=== PATIENT | male | born 1955 | race Caucasian/White ===

== ENCOUNTER 2024-08-28 23:55 | Inpatient (IN) | payer MEDICARE, SELFPAY ==
[2024-08-28 20:11] VITALS: BP 147/93
[2024-08-28 20:33] LABS: % Basophils 0.5 % (0-2); % Eosinophils 0.6 % (0-6); % Immature Granulocytes 0.4 % (0-0.5); % Monocytes 6.9 % (1.7-9.3); % Neutrophils 79.6 % (42.2-75.2); Absolute Basophils 0.1 10^3/uL (0-0.2); Absolute Eosinophils 0.1 10^3/uL (0-0.7); Absolute Lymphocytes 1.3 10^3/uL (1.2-3.4); Absolute Monocytes 0.7 10^3/uL (0.1-0.6); Absolute Neutrophils 8.6 10^3/uL (1.4-6.5); Hematocrit 29.9 % (39.0-52.0); Hemoglobin 10.7 g/dL (13.0-18.0); Mean Corp Hgb Conc. 35.8 g/dL (33.0-37.0); Mean Corpuscular Hgb 33.3 pg (27.0-31.0); Mean Corpuscular Volume 93.1 fL (80.0-94.0); Mean Platelet Volume 8.5 fL (7.4-10.4); Nucleated Red Blood Cells % 0 % (-); Platelet Count 208 10^3/uL (130-400); Red Blood Cell Count 3.21 10^6/uL (4.70-6.10); Red Cell Dist. Width 11.5 % (11.5-14.5); White Blood Cell Count 10.8 10^3/uL (4.8-10.8)
[2024-08-28 20:57] LABS: ALT (SGPT) 17 U/L (0-50); AST (SGOT) 28 U/L (17-59); Albumin 4.7 g/dl (3.5-5.0); Alkaline Phosphatase 65 U/L (38-126); Blood Urea Nitrogen 10 mg/dl (9-20); Calcium 9.3 mg/dl (8.4-10.2); Carbon Dioxide 22 mmol/L (22-30); Chloride 86 mmol/L (98-107); Creatine Phosphokinase 253 U/L (55-170); Glucose 108 mg/dl (70-99); Potassium 5.1 mmol/L (3.5-5.1); Sodium 116 mmol/L (135-145); Total Bilirubin 0.9 mg/dl (0.2-1.3); Total Protein 7.4 g/dl (6.3-8.2); eGFR > 60.00
[2024-08-28 22:20] VITALS: BMI 29.6
--- NOTE | 2024-08-28 22:30 | EDRN ---
Pt visiting from [place]. at bedside says pt's sodium level normally runs around 129. Lowest NA level was 118. Pt complains of cramping. says pt's doctor took him off spironolactone, clonidine and losartan on because of low
sodium levels. says they drove 3 hours yesterday and another 3 hours today. She says pt is an alcoholic and continues to drink. On says doctor lectured pt about stopping his alcohol intake. Pt has cut down to 6 beers daily.
Last alcohol was half a beer around 1700. Pt has had about 3 total beers today. Pt vomited once today because of cramping. Pt denies cp, sob, abd pain, fever/chills, urinary symptoms, weakness, dizziness.
[2024-08-28 22:39] VITALS: BP 129/94
--- NOTE | 2024-08-28 22:41 | ED.GENMED ---
History of Present Illness
General
Chief Complaint: Musculo-Skeletal Complaint
Source: patient and spouse ( is present at the bedside)
Exam Limitations: none
Time Seen by Provider: 08/28/24 22:29
Nursing documentation reviewed up to this point in time: agreed with
History of Present Illness
History of Present Illness:
Pleasant 69-year-old male presents to the emergency department with leg cramping. Patient has a history of chronic hyponatremia and states that leg cramping is an early sign. He is on sodium supplementation, taking 5 pills a day. He admits to
being a chronic alcoholic. He typically drinks 8-10 beers per day but according to his , his PCP convinced him to cut back so now he is drinking only 6 beers per day. Today he was on his third beer when he developed the cramping. Patient is
from [place], in town temporarily. He has never been here before. Patient denies chest pain or shortness of breath. He has had multiple back surgeries in his past. Patient's past medical history is also significant for hypertension and
hyperlipidemia.
Review of Systems
Review of Systems
Allergies reviewed?: Yes
All Other Systems: ROS reviewed and negative except as documented in HPI and ROS
Constitutional: Reports no symptoms
EENT: Reports no symptoms
Respiratory: Reports no symptoms
Cardiac: Reports no symptoms
ABD/GI: Reports no symptoms
: Reports no symptoms
Musculoskeletal: Reports muscle pain (Cramping)
Skin: Reports no symptoms
Neurological: Reports no symptoms
Endocrine: Reports no symptoms
Hematologic/Lymphatic: Reports no symptoms
Psychiatric: Reports no symptoms
Phy Exam
General Physical Exam
General Presentation: well appearing and no apparent distress
General Skin: warm and dry
General Habitus: normal
General Mental: alert
General Hydration: appears well hydrated
ENT Exam
ENT Exam: EOMI, pharynx normal, neck supple and normocephalic
Eye Exam
Eye Exam: PERRL, cornea clear and conjunctiva normal
Cardiovascular Exam
Cardiovascular Exam: regular rate/rhythm, no edema, no murmur and normal peripheral pulses
Pulmonary Exam
Pulmonary Exam: lungs clear, no respiratory distress, no rales, no crackles, no rhonchi, no stridor, no wheezing and no cough
Gastrointestinal Exam
Gastrointestinal Exam: normal bowel sounds, non tender, soft, no organomegaly, no pulsatile mass and non distended
Neurological Exam
Neurological Exam: alert, oriented x3, no motor deficits and speech normal
Musculoskeletal Exam
Musculoskeletal Exam: full ROM, no edema and other (Well-healed scars down the midline of his back for much of the entirety of the back)
Skin Exam
Skin Exam: normal color, warm/dry, no rash and no petechia
Psychiatric Exam
Psychiatric Exam: normal mood/affect
Course
Orders/Labs/Results
Orders:
Orders
08/28/24 20:22
CPK [Creatine Phosphokinase] Urgent
Complete Blood Count/With Diff Urgent
Comprehensive Metabolic Panel Urgent
08/28/24 22:34
Add On- LAB Urgent
Tests Added?: alcohol
08/28/24 22:35
3% Sodium Chloride 250 ml [Sodium Chloride 3%] 250 ml IV ONCE
08/28/24 22:40
Add On- LAB Urgent
Tests Added?: magnesium level
Abnormal Lab Results
08/28/24
20:22
RBC 3.21 L 10^6/uL
(4.70-6.10)
Hgb 10.7 L g/dL
(13.0-18.0)
Hct 29.9 L %
(39.0-52.0)
MCH 33.3 H pg
(27.0-31.0)
Absolute Neuts (auto) 8.6 H 10^3/uL
(1.4-6.5)
Absolute Monos (auto) 0.7 H 10^3/uL
(0.1-0.6)
Neutrophils % 79.6 H %
(42.2-75.2)
Lymphocytes % 12.0 L %
(20.5-51.1)
Sodium 116 L* mmol/L
(135-145)
Chloride 86 L mmol/L
(98-107)
Glucose 108 H mg/dl
(70-99)
Creatine Kinase 253 H U/L
(55-170)
08/28/24 20:22
08/28/24 20:22
Vital Signs
Initial and Last Documented VS:
Initial Vital Signs
Temp Pulse Resp BP Pulse Ox
98.0 F 81 16 147/93 99
08/28/24 20:11 08/28/24 20:11 08/28/24 20:11 08/28/24 20:11 08/28/24 20:11
Last Documented Vital Signs
Temp Pulse Resp BP Pulse Ox
98.0 F 81 16 147/93 99
08/28/24 20:11 08/28/24 20:11 08/28/24 20:11 08/28/24 20:11 08/28/24 20:11
*Critical Care Note
Total Time (30-74mins, 75-104mins- exclusive of procedures): 32 (Critical care statement: A total of 32 minutes of critical care time was provided for this patient. This time is separate from time utilized to perform the aforementioned documented
procedures. Aggregate critical care time includes only time during which I was engaged in work directl)
ED Attending Note
-
Portions of this chart may have been created with voice recognition software.� Occasional wrong word or��sound alike� substitutions may have occurred due to the inherent limitations of voice recognition software.
Discharge Plan
Departure
Patient Disposition: Admit
Date of Disposition: 08/28/24
Time of Disposition: 22:44
Admit to: ICU
Presentation/result/management discussed w/ accepting MD/DO: Hospitalist
Discharge Problem:
Acute hyponatremia, Cramp in muscle, Alcoholism
Prescriptions:
No Action
carvedilol 25 mg Tablet
25 mg PO BID
potassium chloride 10 mEq Tablet Extended Release
10 meq PO BID
thiamine HCl (vitamin B1) 250 mg Tablet
250 mg PO DAILY
omeprazole 40 mg Capsule,Delayed Release(Dr/Ec)
40 mg PO DAILY
simvastatin 20 mg Tablet
20 mg PO DAILY
folic acid 800 mcg Tablet
0.8 mg PO DAILY
sodium chloride 1,000 mg Tablet,Soluble
2,000 mg PO BID
sodium chloride 1,000 mg Tablet,Soluble
1,000 mg PO DAILY@1400
cyanocobalamin (vitamin B-12) 1,000 mcg Capsule
1,000 mcg PO DAILY
magnesium oxide 400 mg magnesium Tablet
400 mg PO Q12H
Probiotic
1 cap PO DAILY
citalopram
25 mg PO DAILY
Interventions
Interventions:
*Risk Screen - Suicide Last Done: 08/28/24 20:11
*General Assessment Last Done: 08/28/24 20:11
*Neglect/Abuse Screening Last Done: 08/28/24 20:11
*ED- Fall Risk Assessment Last Done: 08/28/24 20:11
*ED COVID-19 Vaccine History Last Done: 08/28/24 20:11
Discharge Date and Time
Print Language: TAJIK
--- NOTE | 2024-08-28 22:49 | HPS.HSE ---
Addendum entered and electronically signed by Vikas Schumacher DO 08/29/24 00:02:
Patient seen and examined independently. Agree with findings and plan as set forth by ISATU Rob.
Patient is a 69y M with PMH significant for chronic alcohol use disorder and chronic hyponatremia / beer potomania who presents to ED complaining of R thigh cramping. Patient states that he has been having cramping / muscle spasms in the R thigh
/ groin / hip area for the past week or so. he denies any fall, injury or trauma. He denies any other areas of involvement / diffuse muscle cramping. Patient has chronic hyponatremia and is followed by Nephrology back home in [place]. He is here in
[place] visiting family. Patient typically drinks 12 beers / day. Had three beers so far today prior to presentation. Patient states that baseline Na is usually 129. This past his Na was 121 and he was advised to decrease his beer intake
from 12 to 6 beers daily.
Ass:
Right Hip Pain
Acute on Chronic Hyponatremia
Alcohol Use Disorder
Hypomagnesemia
Benign Hypertension
Depression
GERD
Plan:
Admit for further evaluation and treatment.
3% saline has been started in the ED.
Suspect hyponatremia will improve with fluid restriction given known beer potomania.
Nephrology consulted.
Urine studies added to ED labs and are pending.
Localized cramping does not seem consistent with hyponatremia - check x-rays for evidence of underlying DJD, etc to explain his presenting complaints.
Would also check US to r/o DVT as patient recently drove here from [place] (7 hours) and just drove to [place] and back earlier this month.
MSAS protocol with PRN BZDs for symptoms of withdrawal.
Electrolyte / vitamin replacements.
Original Note:
Family Physician
-
Family Physician:
Chief Complaint
-
leg cramp
History of Present Illness
Patient is a 69-year-old male with past medical history significant for hyponatremia, hypertension, hyperlipidemia, depression/anxiety and GERD who presented to [facility] ED for evaluation of leg cramping. Patient is history of hyponatremia with lowest
118 and highest 129, his baseline is upper 120s. He currently taking sodium chloride TID. Patient also report alcohol dependency currently drinking 6 beers per day, down from 12 per day recently decreased this past . He does report history
of withdraw hallucinations 10-12 years ago when he went to detox and at that time he was drinking 24 beers per day. Patient denies any fever, chills, cough, shortness of breath, chest pain, palpitations, vomiting, constipation, diarrhea or urinary
symptoms.
Medical History
Past Medical History
Past Medical History: Reports Other
Additional Past Medical History:
hyponatremia
alcohol dependency
hypertension
hyperlipidemia
depression/anxiety
GERD
Past Surgical History: Reports Other
Additional Past Surgical History:
back surgery x8
Social History
Tobacco: Other (chews daily )
Alcohol: Daily (currently 6 beers a day, decreased from 12 beers 3 days ago)
Drug: None
Personal:
Living: With Family
Employment: Retired
Family History
Family History: Other (Father: [place])
Allergies / Home Medications
Allergies reflects when Allergies were last updated in [facility].
Home Medications with original date entered in [facility]
Allergy/Medication List:
Allergies
Allergy/AdvReac Type Severity Reaction Status Date / Time
No Known Allergies Allergy Unverified 08/28/24 20:16
Home Medications
Probiotic 1 cap PO DAILY 08/28/24
carvedilol 25 mg tablet 25 mg PO BID 08/28/24
citalopram 25 mg PO DAILY 08/28/24
cyanocobalamin (vitamin B-12) 1,000 mcg capsule 1,000 mcg PO DAILY 08/28/24
folic acid 800 mcg tablet 0.8 mg PO DAILY 08/28/24
magnesium oxide 400 mg PO Q12H 08/28/24
omeprazole 40 mg capsule,delayed release 40 mg PO DAILY 08/28/24
potassium chloride 10 mEq tablet,extended release 10 meq PO BID 08/28/24
simvastatin 20 mg tablet 20 mg PO DAILY 08/28/24
sodium chloride 1,000 mg soluble tablet 1,000 mg PO DAILY@1400 08/28/24
sodium chloride 1,000 mg soluble tablet 2,000 mg PO BID 08/28/24
thiamine HCl (vitamin B1) 250 mg tablet 250 mg PO DAILY 08/28/24
Review of Systems
-
History Source: Patient
Musculoskeletal: Reports Muscle Pain (cramping in LLE )
Physical Exam
Vital Signs
Vital Signs
Temp Pulse Resp BP Pulse Ox
98.0 F 81 16 147/93 99
08/28/24 20:11 08/28/24 20:11 08/28/24 20:11 08/28/24 20:11 08/28/24 20:11
Physical Exam
General: Well Developed, Well Nourished, No Apparent Distress, Comfortable and Conversant
HEENT: NormoCephalic, Moist mucous membranes, Atraumatic, [place] Conjunctivae and Ears Appear Normal
Respiratory: Clear
Cardiac: S1/S2 and Regular Rhythm
Breast: Deferred by me
GI: Soft, Non Tender, Non Distended and Normal Bowel Sounds
Rectal: Deferred by Provider
Genito-urinary: Deferred by me
Musculoskeletal: No Clubbing, No Cyanosis and No Edema
Skin: Warm and IV/Catheter Site
Neuro: Awake, Alert, AO x 3 and Nonfocal/grossly intact
Psych: Calm and Intact Judgment/Insight
Laboratory Results
-
08/28/24 20:22
08/28/24 20:22
Laboratory Results
Total Bilirubin 0.9 mg/dl (0.2-1.3) 08/28/24 20:22
AST 28 U/L (17-59) 08/28/24 20:22
ALT 17 U/L (0-50) 08/28/24 20:22
Alkaline Phosphatase 65 U/L (38-126) 08/28/24 20:22
Data Reviewed
-
Lab Data: Labs Reviewed by me (hgb 10.7, hct 29.9, Na+ 116)
Impression/Plan
-
IMPRESSION/PLAN:
#hyponatremia
Na + 116
- Admit to telemetry
- Consult nephrology
- request records from [facility] [employer] [employer] @ [place], [place], [place]
- 3% sodium
- Na+ q4
#alcohol dependency
6 beers daily, recently decreased from 12 beers daily 3 days ago
- MSAS protocol
#hypomagnesium
Mag 1.5
- replete as indicated
- monitor mag level
#hypertension
- continue carvedilol
#hyperlipidemia
- continue simvastatin
#depression/anxiety
- continue citalopram
#GERD
- continue omeprazole
Code status: full code
DVT prophylaxis: lovenox sq
--- NOTE | 2024-08-28 22:53 | EDRN ---
Called pharmacy for 3% NaCl
[2024-08-28 23:00] VITALS: BP 151/78
[2024-08-28] MEDS: SODIUM CHLORIDE 3% 250 IV (23:05)
[2024-08-28 23:18] LABS: Alcohol 46 mg/dl; Magnesium 1.5 mg/dl (1.6-2.3)
--- NOTE | 2024-08-28 23:42 | EDRN ---
Called pharmacy for magnesium
[2024-08-29] VITALS (29 sets, daily range): BP systolic 78–181; BP diastolic 62–168; BMI 29.5
[2024-08-29] MEDS: MAGNESIUM SULFATE 50 IV (00:56)
[2024-08-29 02:55] LABS: Urine Albumin Negative (Neg - Trace); Urine Bilirubin Negative (Negative); Urine Character Clear (Clear); Urine Color Yellow; Urine Glucose Negative (Negative); Urine Ketone 1+ (Negative); Urine Leukocyte Negative (Negative); Urine Nitrite Negative (Negative); Urine Occult Blood Negative (Negative); Urine Urobilinogen Negative (Neg - 1+)
[2024-08-29 02:56] LABS: Osmolality Urine 481 mOsm/kg (300-900)
[2024-08-29 03:07] LABS: Amphetamines Negative (Negative); Barbiturates Negative (Negative); Benzodiazepines Negative (Negative); Buprenorphine Negative (Negative); Cocaine Negative (Negative); Marijuana Negative (Negative); Methadone Negative (Negative); Methamphetamines Negative (Negative); Opiates Negative (Negative); Phencyclidine Negative (Negative); Tricyclic Antidepressants Negative (Negative)
[2024-08-29 03:12] LABS: Urine Sodium 74 mmol/L (30-90)
[2024-08-29] MEDS: ATIVAN 1 MG IV ×3 (03:14→09:09)
[2024-08-29] MEDS: NSS (PRESERVATIVE FREE) 0.5 ML IV ×2 (03:15→04:41)
[2024-08-29 03:30] LABS: Sodium 117 mmol/L (135-145)
[2024-08-29 03:33] LABS: Phosphorus 3.9 mg/dl (2.5-4.5)
[2024-08-29 03:39] LABS: B-Hydroxybutyrate 1.17 mmol/L (0.02-0.27)
[2024-08-29 04:23] LABS: GGTP 23 U/L (15-73)
[2024-08-29] MEDS: ATIVAN 2 MG IV ×2 (05:40→06:36)
[2024-08-29 05:54] LABS: Glucose - Point of Care 124 mg/dl (70-99)
[2024-08-29] MEDS: NSS (PRESERVATIVE FREE) 1 ML IV (06:00)
--- NOTE | 2024-08-29 06:15 | W.PN.UPDATE ---
Update Note
Progress Note Update
Patient's MSAS has been steadily climbing throughout the overnight and rapid was called. Patient meets criteria for Precedex with MSAS >11. Will transfer.
[2024-08-29 06:28] LABS: Hematocrit 26.4 % (39.0-52.0); Hemoglobin 9.8 g/dL (13.0-18.0); Mean Corp Hgb Conc. 37.1 g/dL (33.0-37.0); Mean Corpuscular Hgb 33.6 pg (27.0-31.0); Mean Corpuscular Volume 90.4 fL (80.0-94.0); Mean Platelet Volume 8.8 fL (7.4-10.4); Platelet Count 198 10^3/uL (130-400); Red Blood Cell Count 2.92 10^6/uL (4.70-6.10); Red Cell Dist. Width 10.9 % (11.5-14.5); White Blood Cell Count 7.8 10^3/uL (4.8-10.8)
[2024-08-29] MEDS: PRECEDEX 100 IV (06:35)
[2024-08-29] MEDS: PHENOBARBITAL 104 MG IV (06:41)
--- NOTE | 2024-08-29 06:43 | W.PN.UPDATE ---
Update Note
Progress Note Update
1620- Received patient from the floor as rapid response due to extreme agitation from withdrawal of ETOH. Ativan 2mg IV given and Precedex gtt initiated. Patient in 4 point restraints due to agitation and aggressive behavior.
[2024-08-29 06:46] LABS: Blood Urea Nitrogen 9 mg/dl (9-20); Carbon Dioxide 22 mmol/L (22-30); Chloride 91 mmol/L (98-107); Estimated Creatinine Clearance 89 ml/min; Glucose 108 mg/dl (70-99); Magnesium 1.9 mg/dl (1.6-2.3); Potassium 4.7 mmol/L (3.5-5.1); Sodium 121 mmol/L (135-145); eGFR > 60.00
--- NOTE | 2024-08-29 06:55 | PTCARENOTE ---
Responded to rapid response that was called on pt on 3rd floor. Pt with increasing MSAS. Transferred to ICU in 4 limb soft restraints. 3% Na infusing per order via L FA int. Complete CHG bath provided, #25 condom cath placed. Precedex gtt initiated
per order via R AC int. Phenobarbital bolus ordered and infusing currently. AM labs sent by IVT RN while on 3rd floor. Pt is diaphoretic, restless, nonverbal x moaning/grunting, no commands followed at this time. ST on tele. Lung sounds decreased
throughout, pox 94% on room air. Dr Parrish at bedside and brief update provided. Will hold on additional ordered dose of Ativan to assess phenobarb effect. Report to be given to oncoming shift RN.
--- NOTE | 2024-08-29 07:30 | PTCARENOTE ---
Received patient A&Ox0, moaning and unable to follow commands, continue soft restraints, on RA, ST in 120s, on Precedex drip.
--- NOTE | 2024-08-29 07:51 | PTCARENOTE ---
Pt arrived to floor approximately 2am. 3% saline for na of 116 (baseline 129), and mag for 1.5 started in ED . Pleasant but drowsy. VSS, tele placed, NSR. Pt completed admission questions, c/o mild cramping in legs. MSAS upon arrival 1. Pt fell
asleep with some restlessness and jerky movements, but able to wake and calm, repeat na 117and hour later pt more restless, pulled IV, removed tele, MSAS 8 which steadily increased over the next 4 hours despite pharmaceutical management, TAGMAN
aware. Placed in restraint for safety, MSAS > 12 rapid called, pt transferred to ICU.
--- NOTE | 2024-08-29 08:39 | CON.INTV ---
Consultation
Consultation Request
Date/Time Consultation Requested: 08/29/2024
Date/Time Consultation Performed:
Medical History
-
Chief Complaint: R Leg Cramps
History of Present Illness:
69 year old male pmhx of chronic alcohol use disorder with chronic hyponatremia (on TID sodium chloride), hypertension, hyperlipidemia, hyperlipidemia, GERD, depression/anxiety who presents with cramping and muscle spasms in the right
thigh/groin/hip for roughly 1 week. He is currently drinking 6 beers per day, which is down from 12 beers per day prior. He has a history of DTs 10-12 years ago during detox, during which time he was drinking 24 beers/day. Initial workup included
ECG which showed NSR, a hip xray which showed no acute osseous abnormalities, and a lower extremity venous Doppler US for h/o long driving. Initial chemistries revealed sodium of 116, Mg 1.5. He was started on 3% saline, MSAS protocol, and his
magnesium was repleted. Serum EtOH was wnl. Throughout the night the patient became increasingly agitated, requiring multiple doses of 1mg/2mg IV Ativan. Eventually, an [employer] was called and the patient was requiring further sedation with Precedex and
was upgraded to ICU.
He is currently on 4 point restraints, Precedex 0.3 ggt, phenobarbital taper, thiamine/folate supplementation. A straight cath was done, yielding approx. 450cc of rizwan-yellow colored urine. Patient is saturating 96% on RA. He is intermittently
tachycardic with nursing activity, but returns to normal rate. He is arousable to sternal rub but not able to meaningfully respond.
Past Medical History
Past Medical History: GERD, HTN, Hypercholesterolemia, Psychiatric and Other (Alcohol Use Disorder)
Past Surgical History: None
Social History
Alcohol: Chronic Alcoholic
Drug: None
Family History
Family History: Reviewed & Not Pertinent
Allergies / Home Medications
Allergies
Allergy/AdvReac Type Severity Reaction Status Date / Time
No Known Allergies Allergy Unverified 08/28/24 20:16
Home Medications
�Medication �Instructions �Recorded �Confirmed �Last Taken �Type
Probiotic 1 cap PO DAILY 08/28/24 08/28/24 Unknown History
carvedilol 25 mg tablet 25 mg PO BID 08/28/24 08/28/24 Unknown History
citalopram 25 mg PO DAILY 08/28/24 08/28/24 Unknown History
cyanocobalamin (vitamin B-12) 1,000 mcg PO DAILY 08/28/24 08/28/24 Unknown History
1,000 mcg capsule
folic acid 800 mcg tablet 0.8 mg PO DAILY 08/28/24 08/28/24 Unknown History
magnesium oxide 400 mg PO Q12H 08/28/24 08/28/24 Unknown History
omeprazole 40 mg capsule,delayed 40 mg PO DAILY 08/28/24 08/28/24 Unknown History
release
potassium chloride 10 mEq 10 meq PO BID 08/28/24 08/28/24 Unknown History
tablet,extended release
simvastatin 20 mg tablet 20 mg PO DAILY 08/28/24 08/28/24 Unknown History
sodium chloride 1,000 mg soluble 1,000 mg PO DAILY@1400 08/28/24 08/28/24 Unknown History
tablet
sodium chloride 1,000 mg soluble 2,000 mg PO BID 08/28/24 08/28/24 Unknown History
tablet
thiamine HCl (vitamin B1) 250 mg 250 mg PO DAILY 08/28/24 08/28/24 Unknown History
tablet
Review of Systems
-
Unable to Obtain full review of systems at this time due to: Other (Patient sedation)
Vitals / Labs / Diagnostic Testing
Vital Signs
Temp Pulse Resp BP Pulse Ox
99 F 96 16 143/80 98
08/29/24 07:39 08/29/24 04:36 08/29/24 04:36 08/29/24 04:36 08/29/24 04:36
Lab Data
08/29/24 06:04
Diagnostic Testing:
Physical Exam
-
HEENT: Normocephalic, Anicteric, Moist Mucous Membranes and Other (snoring)
Cardiovascular: S1/S2, Regular Rhythm, Murmur (none) and Peripheral Edema (none)
Respiratory: Clear, Wheeze (none), Rales (none), Rhonchi (none) and Accessory Resp Muscle Use
GI: Soft, Non Distended, Non Tender and Normal Bowel Sounds
Neurology: Other (sedated)
Skin: Warm and Dry
Assessment
-
ASSESSMENT
Toxic metabolic encephalopathy secondary to alcohol withdrawal/hyponatremia
Delirium tremens
Chronic alcohol use disorder
Chronic hyponatremia
Hypomagnesemia
Acute urinary retention
Normocytic anemia
Hypertension
Hyperlipidemia
GERD
Anxiety/depression
History of restless leg syndrome
PLAN
Toxic metabolic encephalopathy
Delirium tremens
Chronic alcohol use disorder
- Precedex drip for sedation, wean as able
- d/c Ativan, c/w MSAS protocol, IV thiamine/folate
- Strict n.p.o. -- hold p.o. Coreg, citalopram resolved potassium chloride, sodium chloride
- Continue with phenobarbital taper, no signs of active seizure activity
- Will prefer treatment of agitation with phenobarbital over Ativan for decreased risk of respiratory complications in this patient with signs of glossal obstruction during inspiration
Acute on chronic hyponatremia
- Hyponatremia correction per nephro, goal of 124 by the evening and 128 by tomorrow morning
- Urine osmolarity 481 with normal urine sodium, more consistent with SIADH
- Continue with q4 BMPs
- Will continue to monitor for overcorrection, patient may need hypotonic solution/DDAVP
Hypomagnesemia
- Magnesium 1.5 on admission, no ECG changes
- Replete and monitor for goal greater than 2
- Recheck magnesium in the a.m.
Acute urinary retention
- 450 cc of rizwan/yellow-colored urine from straight cath, following bladder scan of >700 cc
- Valentine placed, UA unrevealing
- Continue to monitor urine output
Normocytic anemia
- Likely chronic, iron deficiency versus anemia chronic disease
- Iron studies ordered per primary team, will follow
- Hemoglobin 10.7 on admission, no signs of active bleeding at this time
- Transfuse if hemoglobin <7
Nutrition - no history of diabetes -- continue with [id number] glucose checks, no need of insulin at this time
DVT prophylaxis - SC Lovenox
CODE STATUS - not ordered
[2024-08-29] MEDS: LIPITOR PO (09:00)
[2024-08-29] MEDS: VITAMIN B-12 PO (09:00)
[2024-08-29] MEDS: VISBIOME PO (09:00)
[2024-08-29] MEDS: FOLVITE PO (09:00)
[2024-08-29] MEDS: THIAMINE INJECTION 200 MG IV ×2 (09:00→19:29)
[2024-08-29] MEDS: PROTONIX PO (09:00)
[2024-08-29] MEDS: THIAMINE INJECTION IV (09:00)
[2024-08-29] MEDS: MAGNESIUM OXIDE PO ×2 (09:00→19:28)
--- NOTE | 2024-08-29 09:30 | PTCARENOTE ---
Updated Dr. Ramírez at bedside regarding bladder scan volume and straight cath outcome, MD wants patient to have a youngblood catheter in place for acute urinary retention.
--- NOTE | 2024-08-29 09:40 | W.PN.HOSP.TC ---
Addendum entered and electronically signed by Nathaniel Ramírez MD 08/29/24 10:00:
Normocytic anemia likely chronic. Hemoglobin 10.7.
Check iron and B12 levels
Follow hemoglobin
Original Note:
Today's Communication/Plan
-
DT management
Severe hyponatremia management
Valentine for acute urinary retention
Total Critical Care Time___55__ minutes. I was immediately available to the patient and staff. I personally examined, reviewed labs, diagnostic images/reports, interpretations, treatment plans, discussed patient care with other providers and
family or caregivers (if patient is unable to make decisions), entered orders as appropriate and documented the medical record.
Assessment / Plan
Assessment / Plan
Impression:
Acute toxic metabolic encephalopathy secondary to severe hyponatremia and alcohol withdrawal/delirium tremens.
Acute on chronic hyponatremia
Alcohol withdrawal/delirium tremens.
Hypomagnesemia.
Mild hyperkalemia.
Acute urinary retention
Other conditions:
Essential hypertension
GERD
Alcohol use disorder.
Depression
Plan:
Acute toxic metabolic encephalopathy secondary to severe hyponatremia and alcohol withdrawal/delirium tremens.
Admitted to ICU
Requires 4 point restraints.
See below
Delirium tremens
Severe alcohol use disorder
Initiated on Precedex drip.
Initiated on IV phenobarbital taper for
MSAS with lorazepam
Restraint/protective intervention
Acute on chronic hyponatremia.
Sodium 116.
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
Initiated on 3% solution.
Free water restriction 48 ounces.
Serial BMP.
Nephrology evaluation.
Update TSH
Hold oral salt tablets for now
Hyperkalemia
Hold potassium supplements
Hypomagnesemia. Repleted follow
Acute urinary retention
Valentine catheter to be placed on 08/29
Localized cramping pain in the right thigh area
Lower extremity Doppler negative for DVT.
X-ray with no evidence of fracture or dislocation of the hip.
Reassess once mental status improved and electrolytes corrected.
Essential hypertension.
Hold Coreg acutely monitor BP trend
Anticipated Discharge: > 48 hours
Subjective/Interval History
-
Date of Service: August 29, 2024
Objective Data
-
Labs:
Laboratory Results
08/29/24 08/29/24 08/29/24
02:55 06:04 08:00
WBC 7.8
Hgb 9.8 L
Hct 26.4 L
Plt Count 198
Sodium 117 L* 121 L Cancelled
Potassium 4.7
Chloride 91 L
Carbon Dioxide 22
BUN 9
Creatinine 0.7
Glucose 108 H
Calcium 9.0
08/29/24 08/29/24 08/29/24
09:18 11:18 12:00
WBC
Hgb
Hct
Plt Count
Sodium Pending Pending Cancelled
Potassium Pending Pending
Chloride Pending Pending
Carbon Dioxide Pending Pending
BUN Pending Pending
Creatinine Pending Pending
Glucose Pending Pending
Calcium Pending Pending
08/29/24 08/29/24 08/29/24
13:18 15:18 16:00
WBC
Hgb
Hct
Plt Count
Sodium Pending Pending Cancelled
Potassium Pending Pending
Chloride Pending Pending
Carbon Dioxide Pending Pending
BUN Pending Pending
Creatinine Pending Pending
Glucose Pending Pending
Calcium Pending Pending
08/29/24
20:00
WBC
Hgb
Hct
Plt Count
Sodium Cancelled
Potassium
Chloride
Carbon Dioxide
BUN
Creatinine
Glucose
Calcium
Vital Signs:
Vital Signs
Temp Pulse Resp BP Pulse Ox
99 F 96 16 143/80 98
08/29/24 07:39 08/29/24 04:36 08/29/24 04:36 08/29/24 04:36 08/29/24 04:36
Physical Exam
-
General: Well Developed and No Apparent Distress
HEENT: Normocephalic, Atraumatic and Moist Mucous Membranes
Respiratory: Clear to Auscultation
Cardiac: Regular Rhythm and S1/S2; Negative Murmur, Rub or Gallop
GI: Soft, Nontender, Nondistended and Normal Bowel Sounds; Negative Organomegaly
Rectal: Deferred by Provider
Musculoskeletal: No Clubbing, No Cyanosis and No Edema
Skin: Negative Rash
Neuro: Nonfocal/Grossly Intact and Other (Agitated, noncommunicative, restrained)
--- NOTE | 2024-08-29 10:00 | PTCARENOTE ---
During rounds, Dr. Parrish wanted Phenobarbital IV and discontinued Ativan for MSAS.
--- NOTE | 2024-08-29 10:26 | W.CON.NEPH ---
Consultation
-
Date/Time Consultation Requested: 08/29/24 0938
Date/Time Consultation Performed: 08/29/24 1015
Requesting Provider: Nathaniel Blankenship
Performing Provider: Piper Gautam
Reason for Consultation: Hyponatremia
Medical History
-
Chief Complaint: leg cramp
History of Present Illness:
69-year-old male with past medical history significant for chronic hyponatremia maintained on high dose of salt tab, hypertension on coreg, hyperlipidemia on statin, depression/anxiety on citalopram, RLS on no meds and GERD on PPI who presented to
ED last night for evaluation of leg cramping for last 2days. He is vising his family locally from [place]. On labs noted sodium at 116. Reportedly he was admitted for hyponatremia for 3times in last 3years. His baseline sodium is high 120s. Per
last lab 1week ago was at 121. During that time he saw his mold yard supervisor and noted to have low Bps hence discontinued Losartan, clonidine and spironolactone(reportedly started in Dec by PCP for HTN and felt was the reason for drop in sodium). He
maintained on total 5gm/day of sodium chloride. He was also asked to decrease ETOH amount hence he decreased to 6beers daily from 12 beers. On top of this he drinks 16 ounces of water per day. he had DTs in the past and was at rehab but relapsed
with in 6months. Prior to ER he had nausea and vomited once due to intensity of the leg pain. He is disabled since age of 56 from chronic back issues. He does not ambulate currently due to fall history. He received 3% saline overnight and sodium
upto 121 this morning. Nephrology consulted for eval. He is in ICU now due increased agitation and requiring precedex. He also restrained. Youngblood placed this morning for retention of 500cc.
Past Medical History
hyponatremia
alcohol dependency
hypertension
hyperlipidemia
depression/anxiety
GERD
RLS
Social History
Tobacco: Other (snuffs)
Alcohol: Daily (12beers daily decreased to 6 in last 1week)
Drug: None
Personal:
Living: With Family
Employment: Disabled
Family History
father with ETOH issues and of CHF
Allergies / Home Medications
Allergy/AdvReac Type Severity Reaction Status Date / Time
No Known Allergies Allergy Unverified 08/28/24 20:16
�Medication �Instructions �Recorded �Confirmed �Type
Probiotic 1 cap PO DAILY 08/28/24 08/28/24 History
carvedilol 25 mg tablet 25 mg PO BID 08/28/24 08/28/24 History
citalopram 25 mg PO DAILY 08/28/24 08/28/24 History
cyanocobalamin (vitamin B-12) 1,000 mcg PO DAILY 08/28/24 08/28/24 History
1,000 mcg capsule
folic acid 800 mcg tablet 0.8 mg PO DAILY 08/28/24 08/28/24 History
magnesium oxide 400 mg PO Q12H 08/28/24 08/28/24 History
omeprazole 40 mg capsule,delayed 40 mg PO DAILY 08/28/24 08/28/24 History
release
potassium chloride 10 mEq 10 meq PO BID 08/28/24 08/28/24 History
tablet,extended release
simvastatin 20 mg tablet 20 mg PO DAILY 08/28/24 08/28/24 History
sodium chloride 1,000 mg soluble 1,000 mg PO DAILY@1400 08/28/24 08/28/24 History
tablet
sodium chloride 1,000 mg soluble 2,000 mg PO BID 08/28/24 08/28/24 History
tablet
thiamine HCl (vitamin B1) 250 mg 250 mg PO DAILY 08/28/24 08/28/24 History
tablet
Review of Systems
-
unable to obtain, pt sedated
Physical Exam
Vital Signs
Vital Signs
Temp Pulse Resp BP Pulse Ox
99 F 96 16 143/80 98
08/29/24 07:39 08/29/24 04:36 08/29/24 04:36 08/29/24 04:36 08/29/24 04:36
Lab Results
WBC 7.8 10^3/uL (4.8-10.8) 08/29/24 06:04
RBC 2.92 10^6/uL (4.70-6.10) L 08/29/24 06:04
Hgb 9.8 g/dL (13.0-18.0) L 08/29/24 06:04
Hct 26.4 % (39.0-52.0) L 08/29/24 06:04
Plt Count 198 10^3/uL (130-400) 08/29/24 06:04
Sodium Cancelled 08/29/24 20:00
eGFR > 60.00 08/29/24 06:04
Phosphorus 3.9 mg/dl (2.5-4.5) 08/29/24 02:55
Albumin 4.7 g/dl (3.5-5.0) 08/28/24 20:22
Abnormal Lab Results
08/28/24 08/29/24 08/29/24
20:22 02:45 02:55
RBC 3.21 L
Hgb 10.7 L
Hct 29.9 L
MCH 33.3 H
MCHC
RDW
Absolute Neuts (auto) 8.6 H
Absolute Monos (auto) 0.7 H
Neutrophils % 79.6 H
Lymphocytes % 12.0 L
Sodium 116 L* 117 L*
Chloride 86 L
BUN
Glucose 108 H
Magnesium 1.5 L
TIBC
% Saturation
Creatine Kinase 253 H
Urine Ketones 1+ A
B-Hydroxybutyrate 1.17 H
POC Glucose
08/29/24 08/29/24 08/29/24
05:53 06:04 10:17
RBC 2.92 L
Hgb 9.8 L
Hct 26.4 L
MCH 33.6 H
MCHC 37.1 H
RDW 10.9 L
Absolute Neuts (auto)
Absolute Monos (auto)
Neutrophils %
Lymphocytes %
Sodium 121 L 121 L
Chloride 91 L 91 L
BUN 8 L
Glucose 108 H 114 H
Magnesium
TIBC 225 L
% Saturation 52 H
Creatine Kinase
Urine Ketones
B-Hydroxybutyrate
POC Glucose 124 H
Physical Exam
General: No Distress, Nontoxic and Other (sedated)
HEENT: Neck Supple and No JVD
Respiratory: Clear, Normal Excursion and Nonlabored Respirations
Cardiac: S1/S2 and Regular Rate/Rhythm
Breast: Deferred by me
Abdomen: Soft, Nontender and Nondistended
Musculoskeletal: No Cyanosis and No Edema
Skin: No Rash
Neuro: Other (able to move all extremities)
Psych: Other (unable to assess since sedated)
Data Reviewed
-
Radiology: Report Reviewed by me
Labs: Labs Reviewed by me, Discussed with Nurse and Discussed with Family
Assessment/Plan
-
IMP:
Acute toxic metabolic encephalopathy
Acute on chronic hyponatremia-baseline sodium high 120 range
Alcohol withdrawal/delirium tremens.
Hypomagnesemia.
Acute urinary retention
Essential hypertension
GERD
Alcohol use disorder.
Depression
RLS
Plan:
A/w thigh cramp pain, no DVT
acute on chronic hyponatremia-multifactorial however currently U osmo high at 484, U na 74
suggest SIADH specially with acute pain recently
sodium improving to 121 appropriately, goal tonight at 124, by morning 128
correction rate 6-8meq/hr as he is at risk of CPM
cont q4hr sodium checks, likely start hypotonic fluids if corrects rapidly
recheck U osmo today as he already with sig UOP
replaced mg
TSH pending, check cortisol since BPs are low
he is NPO for now, if he needs IVF for low BPs ok for NS
keep youngblood for retention
holding salt tabs for now -resume when starts po
d/w nursing and family in detail
[2024-08-29 10:41] LABS: INR 1.06; PT 14.1 Sec (11.4-14.6)
[2024-08-29 10:42] LABS: APTT 28.7 Sec (23.4-35.0)
[2024-08-29 10:51] LABS: Blood Urea Nitrogen 8 mg/dl (9-20); Calcium 8.8 mg/dl (8.4-10.2); Carbon Dioxide 24 mmol/L (22-30); Chloride 91 mmol/L (98-107); Estimated Creatinine Clearance 89 ml/min; Glucose 114 mg/dl (70-99); Iron 117 ug/dl (49-181); Potassium 4.2 mmol/L (3.5-5.1); Sodium 121 mmol/L (135-145); eGFR > 60.00
[2024-08-29 11:03] LABS: Percent Saturation 52 % (20-50); Total Iron Binding Capacity 225 ug/dl (261-462)
--- NOTE | 2024-08-29 11:49 | CM ---
Initial assessment completed with . Patient and live in [place] in a 2 story home with basement with B/B on 2nd floor and 1 step to enter home. They are in [place] visiting their daughter. They also have a daughter in [place]. 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 Uses a SPC for ambulation and on occasion a RW. No in-home services. No service. PCP is Dr. Tabatha Thomas with [facility] in [facility]. Pharmacy is [facility] in [facility]. Discharge POC: TBD. Perhaps
in-home services. reports they are willing to stay in the area until care is rendered. They drove from [place].
--- NOTE | 2024-08-29 12:02 | CM ---
Initial assessment completed with . Patient and live in [place] in a 2 story home with basement with B/B on 2nd floor and 1 step to enter home. They are in [place] visiting their daughter. They also have a daughter in [place]. 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 Uses a SPC for ambulation and on occasion a RW. No in-home services. No service. PCP is Dr. Tabatha Thomas with [facility] in [facility]. Pharmacy is [facility] in [facility]. Discharge POC: TBD. Perhaps
in-home services. reports they are willing to stay in the area until care is rendered. They drove from [place].
--- NOTE | 2024-08-29 12:10 | PTCARENOTE ---
Reassessed the patient, pt remains confused but arousble to voice, on RA, NSR from 80s to 90s, off Precedex drip.
[2024-08-29 12:25] LABS: Osmolality Urine 523 mOsm/kg (300-900)
[2024-08-29 13:15] LABS: Urine Sodium 98 mmol/L (30-90)
[2024-08-29 13:56] LABS: Cortisol, Random 10.1 ug/dl; TSH 0.76 uIU/ml (0.47-4.68)
[2024-08-29 14:15] LABS: Vitamin B12 595 pg/ml (239-931)
[2024-08-29 14:58] LABS: Blood Urea Nitrogen 8 mg/dl (9-20); Calcium 8.7 mg/dl (8.4-10.2); Carbon Dioxide 24 mmol/L (22-30); Chloride 92 mmol/L (98-107); Estimated Creatinine Clearance 103 ml/min; Glucose 104 mg/dl (70-99); Potassium 4.2 mmol/L (3.5-5.1); Sodium 121 mmol/L (135-145); eGFR > 60.00
--- NOTE | 2024-08-29 16:00 | PTCARENOTE ---
Reassessed the patient, patient is arousable to voice and able say his own name, remains restless in bed, continue restraints, and daughter are all updated at bedside.
[2024-08-29] MEDS: PHENOBARBITAL 97.5 MG IV ×2 (16:08→21:54)
[2024-08-29] MEDS: SODIUM CHLORIDE 3% 250 IV (17:00)
[2024-08-29] MEDS: LOVENOX 40 MG SC (17:17)
[2024-08-29 19:33] LABS: Blood Urea Nitrogen 7 mg/dl (9-20); Calcium 8.8 mg/dl (8.4-10.2); Carbon Dioxide 20 mmol/L (22-30); Chloride 94 mmol/L (98-107); Estimated Creatinine Clearance 103 ml/min; Glucose 99 mg/dl (70-99); Sodium 121 mmol/L (135-145); eGFR > 60.00
--- NOTE | 2024-08-29 20:03 | PTCARENOTE ---
Received pt from previous RN. Pt is AAOx3, drowsy but easily arousable. Pt following commands, confused @ times, resltess in bed. B/l wrist restraint in place (see worklist). Neuro check per protocol (see worklist). MSAS per protocol. NSR on the
monitor. Pt on RA O2 sat 99%, pt sonorous. Dobhoff in place in right nare @ 70 cm, pt strict NPO no meds per dayshift. Valentine in place for acute retention. 3% saline infusing @ 20 ml/hr. Bed alarm in place. Safe environment maintained. Call [facility] in
reach.
[2024-08-29 22:27] LABS: Blood Urea Nitrogen 8 mg/dl (9-20); Calcium 8.7 mg/dl (8.4-10.2); Carbon Dioxide 26 mmol/L (22-30); Chloride 92 mmol/L (98-107); Estimated Creatinine Clearance 103 ml/min; Glucose 92 mg/dl (70-99); Potassium 4.2 mmol/L (3.5-5.1); Sodium 123 mmol/L (135-145); eGFR > 60.00
--- NOTE | 2024-08-29 23:05 | PTCARENOTE ---
Addendum entered by Edel Walsh RN 08/29/24 23:45:
Pt bladder scanned for 80 mls.
Original Note:
MASTIC FLOOR LAYER notified for pt decreased urine output. MASTIC FLOOR LAYER contacted incubator tender communications station manager.
[2024-08-30] VITALS (21 sets, daily range): BP systolic 106–164; BP diastolic 68–115; PULSE 83–100; O2SAT 99; BMI 29.1
[2024-08-30 03:35] LABS: Hematocrit 27.4 % (39.0-52.0); Hemoglobin 10.2 g/dL (13.0-18.0); Mean Corp Hgb Conc. 37.2 g/dL (33.0-37.0); Mean Corpuscular Volume 91.3 fL (80.0-94.0); Mean Platelet Volume 8.5 fL (7.4-10.4); Platelet Count 180 10^3/uL (130-400); Red Cell Dist. Width 11.4 % (11.5-14.5); White Blood Cell Count 6.8 10^3/uL (4.8-10.8)
[2024-08-30 03:58] LABS: Blood Urea Nitrogen 8 mg/dl (9-20); Calcium 8.8 mg/dl (8.4-10.2); Carbon Dioxide 25 mmol/L (22-30); Chloride 96 mmol/L (98-107); Estimated Creatinine Clearance 103 ml/min; Glucose 90 mg/dl (70-99); Magnesium 1.6 mg/dl (1.6-2.3); Phosphorus 3.4 mg/dl (2.5-4.5); Potassium 4.1 mmol/L (3.5-5.1); Sodium 126 mmol/L (135-145); eGFR > 60.00
--- NOTE | 2024-08-30 04:52 | PTCARENOTE ---
Systems reviewed, no new changes in assessment. AM labs provided. Restraints in place. Safe environment maintained.
--- NOTE | 2024-08-30 07:30 | PTCARENOTE ---
Resumed patient care, Pt was more awake, can verbalize own name and , on RA, NSR, BP stable, DHT tube in Right nare, NPO, FC in place.
Pt can follow commands, behave appropriately, discontinued B/L wrist restraints.
[2024-08-30] MEDS: PHENOBARBITAL 97.5 MG IV ×3 (08:50→21:38)
[2024-08-30] MEDS: THIAMINE INJECTION 200 MG IV ×2 (08:50→19:26)
[2024-08-30 09:13] LABS: Blood Urea Nitrogen 7 mg/dl (9-20); Calcium 8.8 mg/dl (8.4-10.2); Carbon Dioxide 24 mmol/L (22-30); Chloride 96 mmol/L (98-107); Estimated Creatinine Clearance 103 ml/min; Glucose 90 mg/dl (70-99); Potassium 4.3 mmol/L (3.5-5.1); Sodium 124 mmol/L (135-145); eGFR > 60.00
[2024-08-30] MEDS: SODIUM CHLORIDE 3% 250 IV (10:59)
--- NOTE | 2024-08-30 11:06 | PTOTSP ---
Speech Therapy Assessment
No gross signs of aspiration or a significant oral-pharyngeal dysphagia, especially considering recent VSE that did not show aspiration or mention pharyngeal stasis. Current complaints, signs, symptoms and medical history point toward esophageal
dysphagia for which the patient is being worked up for at home in [place].
Recommend
1. IDDSI Level 6 (soft and bite-sized) and Thin Liquids
2. Meds with liquid or as best tolerated.
3. Assist with feeding as patient with slow and imprecise hand to mouth feeding.
4. Reflux precautions.
5. Intersperse sip of liquid after every few bites of solid/semi-solid.
6. Aspiration precautions given current cognitive status.
7. GI consult per md discretion especially if patient showing difficulty with diet.
8. ST will follow to ensure diet tolerance and assess cognition as warranted.
--- NOTE | 2024-08-30 11:35 | W.PN.INTV ---
Today's Communication / Plan
Recommendations
d/c Valentine - TOV
resume p.o. sodium chloride tabs, Mag-Oxide
d/c Dobhoff
c/w phenobarb taper
additional 250ml 3% saline -- repeat BMP in afternoon
Likely downgrade today
Assessment
-
ASSESSMENT
Toxic metabolic encephalopathy secondary to alcohol withdrawal/hyponatremia
Delirium tremens
Chronic alcohol use disorder
Chronic hyponatremia
Hypomagnesemia
Acute urinary retention
Normocytic anemia
Hypertension
Hyperlipidemia
GERD
Anxiety/depression
History of restless leg syndrome
PLAN
Toxic metabolic encephalopathy
Delirium tremens
Chronic alcohol use disorder
- weaned off Precedex drip
- d/c Ativan, c/w MSAS protocol, IV thiamine/folate
- d/c dobhoff
- seen by speech, cleared for IDDSI 6 soft & bite sized
- c/t hold p.o. Coreg -- stopped as outpatient for symptoms of hypotension in outpatient office, pressures now stable. F/u as outpatient in [place] for continued HTN medication management
- c/t hold p.o citalopram -- SIADH picture on chronic hyponatremia. May need to switch to NDRI or other antidepressant without serotonergic component
- Continue with phenobarbital taper, no signs of active seizure activity
- Patient AAOx3, off sedation, will evaluate if tolerates diet and mentation improves. Can likely downgrade today and continue with phenobarbital taper.
Acute on chronic hyponatremia
- Baseline seems to be in 120s. Additional hx obtained from indicates patient had significantly reduced oral intake in the days leading up to hospitalization with Na of 116
- Urine osmolarity 481 with normal urine sodium, more consistent with SIADH vs. beer potomania
- Continue with q4 BMPs
- Was initially felt to be overcorrecting, but Na this morning 124 from 126 -- additional 250ml of 3% given with repeat bmp in afternoon
- OK to resume p.o. sodium chloride tablets
Hypomagnesemia
- Magnesium 1.5 on admission, no ECG changes
- Replete and monitor for goal greater than 2
- repeat Mg 1.6 -- pt OK to resume p.o. mag-oxide tablets
Acute urinary retention
- 450 cc of rizwan/yellow-colored urine from straight cath, following bladder scan of >700 cc
- Valentine placed, UA unrevealing -- awake, out of bed, mobile -- d/c Valentine
- Continue to monitor urine output
Normocytic anemia
- Likely chronic, iron deficiency versus anemia chronic disease
- Iron 117, TIBC 225, %Sat 52, Ferritin 359
- Hemoglobin 10.7 on admission, no signs of active bleeding at this time
- Transfuse if hemoglobin <7
Nutrition - no history of diabetes -- continue with [id number] glucose checks, no need of insulin at this time
DVT prophylaxis - SC Lovenox
CODE STATUS - not ordered
Subjective Dataa
Subjective Data
Date of Service:
Date of Service: August 30, 2024
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
Subjective:
Patient was weaned off sedation from afternoon yesterday. He is not requiring pressure support or sedation at this time. He is saturating 97-99% on RA and is hemodynamically stable. He is awake and alert, but drowzy. He will respond to questions
when asked. He has a baseline restless BL LE. He has no complaints at this time. There were no overnight events and he has not needed any prn phenobarbital. Was seen by PT/OT this morning and was mobilized to the chair, sitting up and talking on his
own.
Additional history obtained from daughter and indicate that the patient has been getting worked up as outpatient for some symptoms of dysphagia. He was cleared previously with swallow evaluation and head/neck CT scan. They were meant to have
follow up today, prior to hospitalization.
Review of Systems
General: Fever (none), Sweats (none), Chills (none) and Pain (none)
HEENT: Oral/Throat Pain (none) and Dysphagia (none)
Cardiopulmonary: Dyspnea (none), Cough (none), Sputum Production (none), Wheezing (none) and Chest Pain (none)
GI: Abdominal Pain (none), Nausea (none), Vomiting (none) and Diarrhea (none)
Neuro: Headache (none) and Numbness (none)
Genitourinary: Valentine
Objective Data
Data Reviewed
Vital Signs / I&O / Oxygen:
Vital Signs
Temp Pulse Resp BP Pulse Ox
97.4 F 85 15 146/77 99
08/30/24 03:26 08/30/24 09:01 08/30/24 09:01 08/30/24 09:01 08/30/24 09:00
Intake and Output
08/29/24 08/30/24 08/31/24
06:59 06:59 06:59
Intake Total 267.4 / 267.4
Output Total 1512 / 1572 165 / 165
Balance -1244.6 / -1304.6 -165 / -165
SaO2 99
Physical Exam
General: Respiratory Distress (none) and T Max (99F)
HEENT: Normocephalic, Anicteric and Moist Mucous Membranes
Cardiovascular: S1-S2, Regular Rhythm and Murmur (none)
Respiratory: Clear, Wheeze (none), Crackles (none), Rhonchi (none) and Non-Labored Respirations
GI: Soft, Non Distended, Non Tender and Normal Bowel Sounds
Neurology: AO x 3
Skin: Warm and Dry
Labs/Micro/Reports
Lab Data
08/30/24 03:23
08/30/24 08:08
--- NOTE | 2024-08-30 11:40 | W.PN.NEPH.PH ---
Today's Communication / Plan
-
see plan
Assessment/Plan
-
IMP:
Acute toxic metabolic encephalopathy
Acute on chronic hyponatremia-baseline sodium high 120 range
Alcohol withdrawal/delirium tremens.
Hypomagnesemia.
Acute urinary retention
Essential hypertension
GERD
Alcohol use disorder.
Depression
RLS
Plan:
A/w thigh cramp pain, no DVT
acute on chronic hyponatremia-multifactorial however currently U osmo high at 484, U na 74
suggest SIADH specially with acute pain recently
sodium improving to 126 but down to 124 off 3%, restart 3%, prn lasix
now that he is more awake and diet restarted-resume FR 40 ounces/day and also resume salt tab
recheck labs in 4hrs. goal is to keep sodium in high 120 which seem to be his baseline
TSH and cortisol were ok
ok for voiding trial
on phenobarbital for DT
d/w nursing, ICU and family in detail
-
-
Date of Service: August 30, 2024
CC / HPI / ROS
-
Chief Complaint:
hyponatremia
History of Present Illness:
sodium up to 126 at 3am but down to 124 off HTS
BP stable
more awake and plan to start diet
non oliguric with youngblood
Review of Systems:
no fever, no sob or cp
Labs
-
Labs:
WBC 6.8 10^3/uL (4.8-10.8) 08/30/24 03:23
RBC 3.00 10^6/uL (4.70-6.10) L 08/30/24 03:23
Hgb 10.2 g/dL (13.0-18.0) L 08/30/24 03:23
Hct 27.4 % (39.0-52.0) L 08/30/24 03:23
Plt Count 180 10^3/uL (130-400) 08/30/24 03:23
Sodium 124 mmol/L (135-145) L 08/30/24 08:08
Potassium 4.3 mmol/L (3.5-5.1) 08/30/24 08:08
Chloride 96 mmol/L (98-107) L 08/30/24 08:08
Carbon Dioxide 24 mmol/L (22-30) 08/30/24 08:08
BUN 7 mg/dl (9-20) L 08/30/24 08:08
Creatinine 0.6 mg/dL (0.7-1.3) L 08/30/24 08:08
eGFR > 60.00 08/30/24 08:08
Glucose 90 mg/dl (70-99) 08/30/24 08:08
Calcium 8.8 mg/dl (8.4-10.2) 08/30/24 08:08
Phosphorus 3.4 mg/dl (2.5-4.5) 08/30/24 03:23
Phosphorus Cancelled 08/30/24 03:23
Albumin 4.7 g/dl (3.5-5.0) 08/28/24 20:22
Physical Exam
-
Vital Signs:
Vital Signs
Temp Pulse Resp BP Pulse Ox
97.4 F 85 15 146/77 99
08/30/24 03:26 08/30/24 09:01 08/30/24 09:01 08/30/24 09:01 08/30/24 09:00
Cardiovascular:: Regular rate and rhythm
Respiratory:: Bilateral: CTA
Lung Excursion:: Normal
Abdomen:: Nontender and Soft
Extremity Edema:: None: Bilateral:
Youngblood Catheter: Yes
--- NOTE | 2024-08-30 12:00 | PTCARENOTE ---
10:00, ST evaluated the patient, recommended soft and bite size diet. Discontinued DHT tube.
10:30, PTs worked with the patient, got pt OOB to chair.
11:00, Renal Dr. Bowman agreed with the diet and ordered 40oz fluid restriction. Na came back 124, ordered 3% NSx1.
12:00, Reassessed the patient, pt A&Ox3, on RA, NSR, BP stable, discontinued FC.
[2024-08-30] MEDS: VITAMIN B-12 1000 MCG PO (12:04)
[2024-08-30] MEDS: VISBIOME 1 CAP PO (12:04)
[2024-08-30] MEDS: FOLVITE 1 MG PO (12:04)
[2024-08-30] MEDS: LIPITOR 10 MG PO (12:04)
[2024-08-30] MEDS: PROTONIX 40 MG PO (12:04)
[2024-08-30] MEDS: MAGNESIUM OXIDE 500 MG PO ×2 (12:04→19:26)
--- NOTE | 2024-08-30 13:58 | CM ---
D/C [facility]. Sitting in chair. Discharge POC: Therapy recommendation for SNF. Patient and visiting from [place]. [employer] list supplied to for [facility] where daughter resides. will discuss with and daughter to
determine if they wish to pursue SNF in the area. If they so choose, instructed to identify at least 5 preferred facilities and give to CM on 08/12/24.
--- NOTE | 2024-08-30 13:59 | W.PN.HOSP.TC ---
Today's Communication/Plan
-
Mental status improved.
Has been off Precedex drip.
Continue IV phenobarbital taper
Continue thiamine
Diet has been advanced.
Continue solid tap and free water restriction per
Repeat 3% infusion
Follow BMP/sodium level
Assessment / Plan
Assessment / Plan
Impression:
Acute toxic metabolic encephalopathy secondary to severe hyponatremia and alcohol withdrawal/delirium tremens.
Acute on chronic hyponatremia
Alcohol withdrawal/delirium tremens.
Hypomagnesemia.
Mild hyperkalemia.
Acute urinary retention
Other conditions:
Essential hypertension
GERD
Alcohol use disorder.
Depression
Plan:
Mental status improved with DT treatment and electrolyte correction
See below
Delirium tremens
Severe alcohol use disorder
Improved and off Precedex drip as of 08/29 p.m.
Continue IV phenobarbital
MSAS with lorazepam
Off restraints
IV thiamine
Acute on chronic hyponatremia.
Sodium 116.
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
Normal TSH and cortisol level
Initiated on 3% solution.
Sodium improved at 124.
With mental status improved, restarting diet with 40 ounces free water restriction and slowly
Repeating 3% infusion.
Hyperkalemia
Hold potassium supplements
Hypomagnesemia. Repleted follow
Acute urinary retention
Valentine catheter to be placed on 08/29
Localized cramping pain in the right thigh area
Lower extremity Doppler negative for DVT.
X-ray with no evidence of fracture or dislocation of the hip.
Reassess once mental status improved and electrolytes corrected.
Essential hypertension.
Hold Coreg acutely monitor BP trend
Anticipated Discharge: 24 - 48 hours
Subjective/Interval History
-
Date of Service: August 30, 2024
Objective Data
-
Labs:
Laboratory Results
08/30/24 08/30/24 08/30/24
03:23 04:07 08:08
WBC 6.8
Hgb 10.2 L
Hct 27.4 L
Plt Count 180
Sodium 126 L Cancelled 124 L
Potassium 4.1 Cancelled 4.3
Chloride 96 L Cancelled 96 L
Carbon Dioxide 25 Cancelled 24
BUN 8 L Cancelled 7 L
Creatinine 0.6 L Cancelled 0.6 L
Glucose 90 Cancelled 90
Calcium 8.8 Cancelled 8.8
08/30/24
15:30
WBC
Hgb
Hct
Plt Count
Sodium Pending
Potassium Pending
Chloride Pending
Carbon Dioxide Pending
BUN Pending
Creatinine Pending
Glucose Pending
Calcium Pending
Vital Signs:
Vital Signs
Temp Pulse Resp BP Pulse Ox
97.4 F 85 15 146/77 99
08/30/24 03:26 08/30/24 09:01 08/30/24 09:01 08/30/24 09:01 08/30/24 09:00
I&O
08/29/24 08/30/24 08/31/24
06:59 06:59 06:59
Intake Total 267.4 / 267.4 130 / 130
Output Total 1512 / 1572 225 / 225
Balance -1244.6 / -1304.6 -95 / -95
Physical Exam
-
General: Well Developed and No Apparent Distress
HEENT: Normocephalic, Atraumatic and Moist Mucous Membranes
Respiratory: Clear to Auscultation
Cardiac: Regular Rhythm and S1/S2; Negative Murmur, Rub or Gallop
GI: Soft, Nontender, Nondistended and Normal Bowel Sounds; Negative Organomegaly
Rectal: Deferred by Provider
Musculoskeletal: No Clubbing, No Cyanosis and No Edema
Skin: Negative Rash
Neuro: Awake, Alert, Oriented, AO x 3, Nonfocal/Grossly Intact and Other
[2024-08-30] MEDS: SODIUM CHLORIDE 1 GRAM PO (15:13)
[2024-08-30 16:59] LABS: Blood Urea Nitrogen 8 mg/dl (9-20); Calcium 8.6 mg/dl (8.4-10.2); Carbon Dioxide 23 mmol/L (22-30); Chloride 96 mmol/L (98-107); Estimated Creatinine Clearance 103 ml/min; Glucose 140 mg/dl (70-99); Sodium 124 mmol/L (135-145); eGFR > 60.00
[2024-08-30] MEDS: LOVENOX 40 MG SC (17:26)
--- NOTE | 2024-08-30 17:30 | PTCARENOTE ---
16:30, Reassessed the patient, helped patient go back to bed, on RA, rechecked BMP.
17:20, Made Alyx Bowman aware Orin Ortega MD ordered recheck BMP at 21:00.
17:30, Bladder scanned patient, only showed 146mL. Updated at bedside.
[2024-08-30] MEDS: SODIUM CHLORIDE 2 GRAM PO (19:26)
--- NOTE | 2024-08-30 20:24 | PTCARENOTE ---
Received pt from previous RN. Pt is AAOx3, drowsy and restless at times, flat/withdrawn. MSAS per protocol (see worklist). Neuro check provided (see worklist). NSR/sinus tach on the monitor. Pt on RA, lungs diminished. Pt expressed he does not need
to void at the moment. 3% infusing at 20 ml/hr. CHG and mouth care provided. Bed alarm in place. Call [facility] in reach. Safe environment maintained.
[2024-08-30 22:10] LABS: Blood Urea Nitrogen 7 mg/dl (9-20); Calcium 8.7 mg/dl (8.4-10.2); Carbon Dioxide 24 mmol/L (22-30); Chloride 99 mmol/L (98-107); Estimated Creatinine Clearance 103 ml/min; Glucose 125 mg/dl (70-99); Potassium 3.9 mmol/L (3.5-5.1); Sodium 126 mmol/L (135-145); eGFR > 60.00
[2024-08-31] VITALS (8 sets, daily range): BP systolic 133–163; BP diastolic 70–100; BMI 29.1
[2024-08-31 05:27] LABS: Blood Urea Nitrogen 7 mg/dl (9-20); Calcium 8.8 mg/dl (8.4-10.2); Carbon Dioxide 25 mmol/L (22-30); Chloride 100 mmol/L (98-107); Estimated Creatinine Clearance 103 ml/min; Glucose 95 mg/dl (70-99); Potassium 4.1 mmol/L (3.5-5.1); Sodium 129 mmol/L (135-145); eGFR > 60.00
[2024-08-31] MEDS: PHENOBARBITAL 97.5 MG IV (08:04)
[2024-08-31] MEDS: SODIUM CHLORIDE 2 GRAM PO ×2 (08:05→19:48)
[2024-08-31] MEDS: MAGNESIUM OXIDE 500 MG PO ×2 (08:05→19:49)
[2024-08-31] MEDS: LIPITOR 10 MG PO (08:05)
[2024-08-31] MEDS: PROTONIX 40 MG PO (08:05)
[2024-08-31] MEDS: VITAMIN B-12 1000 MCG PO (08:05)
[2024-08-31] MEDS: VISBIOME 1 CAP PO (08:05)
[2024-08-31] MEDS: THIAMINE INJECTION 200 MG IV ×2 (08:05→19:49)
[2024-08-31] MEDS: FOLVITE 1 MG PO (08:05)
--- NOTE | 2024-08-31 08:48 | PTCARENOTE ---
Received pt from previous RN. Pt is restless at times, not oriented to location or time. Reoriented. MSAS per protocol (see worklist). NSR, HTN noted. Pt on RA, lungs diminished. Pt expressed he does not need to void at the moment. Bed alarm in
place. Call [facility] in reach. Safe environment maintained.
--- NOTE | 2024-08-31 09:22 | PTCARENOTE ---
Report given to Caden Perdomo. Awaiting wheelchair for transport. at bedside, updated. Pt requesting his 'snuff,' told pt that it's not allowed in hospital. requested nicotine patch from hospitalist.
[2024-08-31] MEDS: NICODERM TRANSDERMAL 21 MG TRANSDERM (13:59)
[2024-08-31] MEDS: SODIUM CHLORIDE 1 GRAM PO (14:01)
--- NOTE | 2024-08-31 14:54 | W.PN.HOSP.TC ---
Today's Communication/Plan
-
Mental status improved to close to baseline, although patient significantly deconditioned.
No evidence for active withdrawal while on phenobarbital taper
Continue thiamine
Add nicotine patch
Continue SolTab and follow BMP
Free water restriction to 40 ounces.
PT evaluation and discharge planning
Assessment / Plan
Assessment / Plan
Impression:
Acute toxic metabolic encephalopathy secondary to severe hyponatremia and alcohol withdrawal/delirium tremens.
Acute on chronic hyponatremia
Alcohol withdrawal/delirium tremens.
Hypomagnesemia.
Mild hyperkalemia.
Acute urinary retention
Other conditions:
Essential hypertension
GERD
Alcohol use disorder.
Depression
Plan:
Mental status improved with DT treatment and electrolyte correction
See below
Delirium tremens
Severe alcohol use disorder
Improved and off Precedex drip as of 08/29 p.m.
Continue IV phenobarbital
Okay to stop lorazepam protocol
Off restraints
IV thiamine
Acute on chronic hyponatremia.
Sodium 116.
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
Normal TSH and cortisol level
Pleated 3% solution infusion x 2
Sodium improved at 124-129
With mental status improved, restarting diet with 40 ounces free water restriction and slowly
Hyperkalemia
Hold potassium supplements
Hypomagnesemia. Repleted follow
Acute urinary retention
Valentine catheter to be placed on 08/29
Localized cramping pain in the right thigh area
Lower extremity Doppler negative for DVT.
X-ray with no evidence of fracture or dislocation of the hip.
Patient remains with intermittent pain in the mid hip area which is likely referred from the spine. Status post multiple spine surgeries in the past.
Essential hypertension.
Hold Coreg acutely monitor BP trend
Anticipated Discharge: 24 - 48 hours
Subjective/Interval History
-
Date of Service: August 31, 2024
Objective Data
-
Labs:
Laboratory Results
08/31/24
04:41
Sodium 129 L
Potassium 4.1
Chloride 100
Carbon Dioxide 25
BUN 7 L
Creatinine 0.6 L
Glucose 95
Calcium 8.8
Vital Signs:
Vital Signs
Temp Pulse Resp BP Pulse Ox
97.8 F 75 18 151/86 98
08/31/24 10:45 08/31/24 10:45 08/31/24 10:45 08/31/24 10:45 08/31/24 10:45
I&O
08/30/24 08/31/24 09/01/24
06:59 06:59 06:59
Intake Total 267.4 / 267.4 620 / 620 720 / 720
Output Total 1512 / 1572 425 / 425
Balance -1244.6 / -1304.6 195 / 195 720 / 720
Physical Exam
-
General: Well Developed and No Apparent Distress
HEENT: Normocephalic, Atraumatic and Moist Mucous Membranes
Respiratory: Clear to Auscultation
Cardiac: Regular Rhythm and S1/S2; Negative Murmur, Rub or Gallop
GI: Soft, Nontender, Nondistended and Normal Bowel Sounds; Negative Organomegaly
Rectal: Deferred by Provider
Musculoskeletal: No Clubbing, No Cyanosis and No Edema
Skin: Negative Rash
Neuro: Awake, Alert, Oriented, AO x 3, Nonfocal/Grossly Intact and Other
--- NOTE | 2024-08-31 16:08 | PTCARENOTE ---
Rec'd pt from ICU, oriented to room and unit. Pt placed on tele running nsr. Pt call [facility] placed within reach, pt instructed to ring, verbalized understanding. will cont to monitor.
--- NOTE | 2024-08-31 16:44 | W.PN.NEPH.PH ---
Today's Communication / Plan
-
coreg, lasix
Assessment/Plan
-
IMP:
Acute toxic metabolic encephalopathy
Acute on chronic hyponatremia-baseline sodium high 120 range
Alcohol withdrawal/delirium tremens.
Hypomagnesemia.
Acute urinary retention
Essential hypertension
GERD
Alcohol use disorder.
Depression
RLS
Plan:
back on NaCl
restart Lasix 20mg daily
restart coreg 12.5mg po BID
discussed FR again, at least 64oz (previously consuming 96oz)
-
-
Date of Service: August 31, 2024
CC / HPI / ROS
-
Chief Complaint:
hyponatremia
History of Present Illness:
sodium up to 129
BP stable high
eating
Review of Systems:
no fever, no sob or cp
Labs
-
Labs:
WBC 6.8 10^3/uL (4.8-10.8) 08/30/24 03:23
RBC 3.00 10^6/uL (4.70-6.10) L 08/30/24 03:23
Hgb 10.2 g/dL (13.0-18.0) L 08/30/24 03:23
Hct 27.4 % (39.0-52.0) L 08/30/24 03:23
Plt Count 180 10^3/uL (130-400) 08/30/24 03:23
Sodium 129 mmol/L (135-145) L 08/31/24 04:41
Potassium 4.1 mmol/L (3.5-5.1) 08/31/24 04:41
Chloride 100 mmol/L (98-107) 08/31/24 04:41
Carbon Dioxide 25 mmol/L (22-30) 08/31/24 04:41
BUN 7 mg/dl (9-20) L 08/31/24 04:41
Creatinine 0.6 mg/dL (0.7-1.3) L 08/31/24 04:41
eGFR > 60.00 08/31/24 04:41
Glucose 95 mg/dl (70-99) 08/31/24 04:41
Calcium 8.8 mg/dl (8.4-10.2) 08/31/24 04:41
Phosphorus 3.4 mg/dl (2.5-4.5) 08/30/24 03:23
Phosphorus Cancelled 08/30/24 03:23
Albumin 4.7 g/dl (3.5-5.0) 08/28/24 20:22
Physical Exam
-
Vital Signs:
Vital Signs
Temp Pulse Resp BP Pulse Ox
98 F 81 18 144/82 99
08/31/24 15:15 08/31/24 15:15 08/31/24 15:15 08/31/24 15:15 08/31/24 15:15
Cardiovascular:: Regular rate and rhythm
Respiratory:: Bilateral: CTA
Lung Excursion:: Normal
Abdomen:: Nontender and Soft
Bowel Sounds:: Normal
Extremity Edema:: None: Bilateral:
[2024-08-31] MEDS: LUMINAL 64.8 MG PO ×2 (16:55→21:10)
[2024-08-31] MEDS: LASIX 20 MG PO (16:56)
[2024-08-31] MEDS: LOVENOX 40 MG SC (17:42)
[2024-08-31] MEDS: COREG 12.5 MG PO (19:48)
[2024-09-01] VITALS (8 sets, daily range): BP systolic 121–161; BP diastolic 67–98; PULSE 74; O2SAT 97
--- NOTE | 2024-09-01 04:10 | PTCARENOTE ---
Patient had an unwitnessed fall, found on his knees at foot of bed. Patient's bed alarm intact and working properly throughout the night with each rounding. Patient stated he was 'trying to plug in his watch'. Denies pain or hitting head. Slight
amount of redness noted to bilateral knees. AAOx3, neuro check WNL. BP 148/83, HR 87, temp 97.8, pulse ox 100% on RA. [employer] made aware and up to see patient.
--- NOTE | 2024-09-01 04:14 | W.PN.UPDATE ---
Update Note
Progress Note Update
-Called at bedside to assess the patient as he had unwitnessed fall.
-During assessment time, patient is alert and oriented x 3. Denies hitting his head. Per patient, he tripped on his bed sheet while he attempting to get out of bed.
-Vital signs within normal limits. BLE with FROM. Some bruises/ redness noted on the knees. Per the patient its not new. Denies pain.
-Will start neuro check.
[2024-09-01 07:39] LABS: Blood Urea Nitrogen 9 mg/dl (9-20); Calcium 8.5 mg/dl (8.4-10.2); Carbon Dioxide 25 mmol/L (22-30); Chloride 96 mmol/L (98-107); Estimated Creatinine Clearance 103 ml/min; Glucose 102 mg/dl (70-99); Potassium 3.9 mmol/L (3.5-5.1); Sodium 126 mmol/L (135-145); eGFR > 60.00
[2024-09-01] MEDS: VISBIOME 1 CAP PO (09:05)
[2024-09-01] MEDS: COREG 12.5 MG PO ×2 (09:05→20:24)
[2024-09-01] MEDS: SODIUM CHLORIDE 2 GRAM PO ×2 (09:05→20:24)
[2024-09-01] MEDS: VITAMIN B-12 1000 MCG PO (09:05)
[2024-09-01] MEDS: FOLVITE 1 MG PO (09:05)
[2024-09-01] MEDS: PROTONIX 40 MG PO (09:05)
[2024-09-01] MEDS: MAGNESIUM OXIDE 500 MG PO ×2 (09:05→20:24)
[2024-09-01] MEDS: VITAMIN B1 100 MG PO ×2 (09:05→20:24)
[2024-09-01] MEDS: LUMINAL 64.8 MG PO ×3 (09:06→22:03)
[2024-09-01] MEDS: LIPITOR 10 MG PO (09:06)
[2024-09-01] MEDS: NICODERM TRANSDERMAL 21 MG TRANSDERM (09:07)
[2024-09-01] MEDS: LASIX 20 MG PO (09:07)
[2024-09-01] MEDS: FLUSH (NSS) 1 FLUSH IV (09:08)
--- NOTE | 2024-09-01 12:02 | W.PN.NEPH.PH ---
Addendum entered and electronically signed by Emile Smalls MD 09/01/24 12:06:
no samsca while on phenobarbital
Original Note:
Today's Communication / Plan
-
samsca
Assessment/Plan
-
IMP:
Acute toxic metabolic encephalopathy
Acute on chronic hyponatremia-baseline sodium high 120 range
Alcohol withdrawal/delirium tremens.
Hypomagnesemia.
Acute urinary retention
Essential hypertension
GERD
Alcohol use disorder.
Depression
RLS
Plan:
continue NaCl
Lasix 20mg daily
coreg 12.5mg po BID
discussed FR again, less than 64oz (previously consuming 96oz), but may need to be <40oz if Na uncontrolled
samsca today
-
-
Date of Service: September 01, 2024
CC / HPI / ROS
-
Chief Complaint:
hyponatremia
History of Present Illness:
sodium down to 126
BP stable
unwitnessed fall. no injury
Review of Systems:
no fever, no sob or cp
Labs
-
Labs:
WBC 6.8 10^3/uL (4.8-10.8) 08/30/24 03:23
RBC 3.00 10^6/uL (4.70-6.10) L 08/30/24 03:23
Hgb 10.2 g/dL (13.0-18.0) L 08/30/24 03:23
Hct 27.4 % (39.0-52.0) L 08/30/24 03:23
Plt Count 180 10^3/uL (130-400) 08/30/24 03:23
Sodium 126 mmol/L (135-145) L 09/01/24 06:00
Potassium 3.9 mmol/L (3.5-5.1) 09/01/24 06:00
Chloride 96 mmol/L (98-107) L 09/01/24 06:00
Carbon Dioxide 25 mmol/L (22-30) 09/01/24 06:00
BUN 9 mg/dl (9-20) 09/01/24 06:00
Creatinine 0.6 mg/dL (0.7-1.3) L 09/01/24 06:00
eGFR > 60.00 09/01/24 06:00
Glucose 102 mg/dl (70-99) H 09/01/24 06:00
Calcium 8.5 mg/dl (8.4-10.2) 09/01/24 06:00
Phosphorus 3.4 mg/dl (2.5-4.5) 08/30/24 03:23
Phosphorus Cancelled 08/30/24 03:23
Albumin 4.7 g/dl (3.5-5.0) 08/28/24 20:22
Physical Exam
-
Vital Signs:
Vital Signs
Temp Pulse Resp BP Pulse Ox
97.5 F 70 16 132/82 100
09/01/24 11:05 09/01/24 11:05 09/01/24 11:05 09/01/24 11:05 09/01/24 11:05
Cardiovascular:: Regular rate and rhythm
Respiratory:: Bilateral: CTA
Lung Excursion:: Normal
Abdomen:: Nontender and Soft
Bowel Sounds:: Normal
Extremity Edema:: None: Bilateral:
[2024-09-01] MEDS: TYLENOL 650 MG PO (14:22)
[2024-09-01] MEDS: SODIUM CHLORIDE 1 GRAM PO (14:22)
--- NOTE | 2024-09-01 14:42 | W.PN.HOSP.TC ---
Today's Communication/Plan
-
Free water restriction.
SoluTab and Lasix.
Unable to provide Samsca given phenobarbital interaction.
Follow BMP.
PT assessment
Phenobarbital taper
Assessment / Plan
Assessment / Plan
Impression:
Acute toxic metabolic encephalopathy secondary to severe hyponatremia and alcohol withdrawal/delirium tremens.
Acute on chronic hyponatremia
Alcohol withdrawal/delirium tremens.
Hypomagnesemia.
Mild hyperkalemia.
Acute urinary retention
Other conditions:
Essential hypertension
GERD
Alcohol use disorder.
Depression
Plan:
Mental status improved with DT treatment and electrolyte correction
See below
Delirium tremens
Severe alcohol use disorder
Improved and off Precedex drip as of 08/29 p.m.
Continue phenobarbital taper. Transition to p.o.
Okay to stop lorazepam protocol
Off restraints
IV thiamine
Acute on chronic hyponatremia.
Sodium 116.
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
Normal TSH and cortisol level
Pleated 3% solution infusion x 2
Sodium improved at 124-129-126
With mental status improved, restarting diet with 40 ounces free water restriction and slowly
Resumed on Lasix
Hyperkalemia
Hold potassium supplements
Hypomagnesemia. Repleted follow
Acute urinary retention
Valentine catheter to be placed on 08/29
Localized cramping pain in the right thigh area
Lower extremity Doppler negative for DVT.
X-ray with no evidence of fracture or dislocation of the hip.
Patient remains with intermittent pain in the mid hip area which is likely referred from the spine. Status post multiple spine surgeries in the past.
Essential hypertension.
Continue Coreg
Anticipated Discharge: 24 - 48 hours
Subjective/Interval History
-
Date of Service: September 01, 2024
Objective Data
-
Labs:
Laboratory Results
09/01/24
06:00
Sodium 126 L
Potassium 3.9
Chloride 96 L
Carbon Dioxide 25
BUN 9
Creatinine 0.6 L
Glucose 102 H
Calcium 8.5
Vital Signs:
Vital Signs
Temp Pulse Resp BP Pulse Ox
97.5 F 70 16 132/82 100
09/01/24 11:05 09/01/24 11:05 09/01/24 11:05 09/01/24 11:05 09/01/24 11:05
I&O
08/31/24 09/01/24 09/02/24
06:59 06:59 06:59
Intake Total 620 / 620 1480 / 1480
Output Total 425 / 425 625 / 625
Balance 195 / 195 855 / 855
Physical Exam
-
General: Well Developed and No Apparent Distress
HEENT: Normocephalic, Atraumatic and Moist Mucous Membranes
Respiratory: Clear to Auscultation
Cardiac: Regular Rhythm and S1/S2; Negative Murmur, Rub or Gallop
GI: Soft, Nontender, Nondistended and Normal Bowel Sounds; Negative Organomegaly
Rectal: Deferred by Provider
Musculoskeletal: No Clubbing, No Cyanosis and No Edema
Skin: Negative Rash
Neuro: Awake, Alert, Oriented, AO x 3, Nonfocal/Grossly Intact and Other
--- NOTE | 2024-09-01 16:19 | PTCARENOTE ---
Pt AAO x3, KIM; OOB to chair/ambulated to BR with assist x1/walker, pt very unsteady with OOb activity. Fall prec maintained. VSS. Telemetry:NSR. On room air- pulse ox 99%, no c/o SOB. Abd large, soft, johnna IDDI 6 diet; no dysphagia noted.
Voids in urinal without difficulty. Resting in bed at present; at bedside. Will continue to monitor.
--- NOTE | 2024-09-01 17:37 | CM ---
PT Ot indicate SNF.
[facility]
Referral placed .
PLAN To Snf after located
[2024-09-01] MEDS: LOVENOX 40 MG SC (17:58)
[2024-09-02 03:18] VITALS: BP 109/64
[2024-09-02 08:19] VITALS: BP 111/69
[2024-09-02] MEDS: COREG 12.5 MG PO (08:31)
[2024-09-02] MEDS: LUMINAL 64.8 MG PO (08:35)
[2024-09-02] MEDS: LASIX 20 MG PO (08:35)
[2024-09-02] MEDS: FOLVITE 1 MG PO (08:35)
[2024-09-02] MEDS: LIPITOR 10 MG PO (08:35)
[2024-09-02] MEDS: MAGNESIUM OXIDE 500 MG PO (08:36)
[2024-09-02] MEDS: NICODERM TRANSDERMAL 21 MG TRANSDERM (08:36)
[2024-09-02] MEDS: PROTONIX 40 MG PO (08:37)
[2024-09-02] MEDS: VITAMIN B-12 1000 MCG PO (08:37)
[2024-09-02] MEDS: SODIUM CHLORIDE 2 GRAM PO (08:37)
[2024-09-02] MEDS: VITAMIN B1 100 MG PO (08:37)
[2024-09-02] MEDS: VISBIOME 1 CAP PO (08:37)
[2024-09-02] MEDS: FLUSH (NSS) 1 FLUSH IV (08:40)
[2024-09-02 08:55] LABS: Blood Urea Nitrogen 10 mg/dl (9-20); Calcium 8.9 mg/dl (8.4-10.2); Carbon Dioxide 28 mmol/L (22-30); Chloride 97 mmol/L (98-107); Estimated Creatinine Clearance 88 ml/min; Glucose 89 mg/dl (70-99); Potassium 4.2 mmol/L (3.5-5.1); Sodium 128 mmol/L (135-145); eGFR > 60.00
[2024-09-02 09:10] VITALS: BP 117/74; PULSE 85; O2SAT 98
[2024-09-02 09:40] VITALS: BP 117/74
[2024-09-02 11:56] VITALS: BP 145/86
--- NOTE | 2024-09-02 14:02 | W.PN.NEPH.PH ---
Today's Communication / Plan
-
see plan
Assessment/Plan
-
IMP:
Acute toxic metabolic encephalopathy
Acute on chronic hyponatremia-baseline sodium high 120 range
Alcohol withdrawal/delirium tremens.
Hypomagnesemia.
Acute urinary retention
Essential hypertension
GERD
Alcohol use disorder.
Depression
RLS
Plan:
sodium up at 128
continue NaCl and Lasix 20mg daily
reviewed imp of FR 40-48ounces/day of fluids
Also quitting ETOH
could not use Samsca while on phenobarbital
bp stable, cont coreg
long d/w pt and family at bedside
upon d/c would need bmp in few days hopefully at his home town in [place]
-
-
Date of Service: September 02, 2024
CC / HPI / ROS
-
Chief Complaint:
hyponatremia
History of Present Illness:
sodium up at 128
BP stable
able to walk with PT today
Review of Systems:
no fever, no sob or cp
Labs
-
Labs:
WBC 6.8 10^3/uL (4.8-10.8) 08/30/24 03:23
RBC 3.00 10^6/uL (4.70-6.10) L 08/30/24 03:23
Hgb 10.2 g/dL (13.0-18.0) L 08/30/24 03:23
Hct 27.4 % (39.0-52.0) L 08/30/24 03:23
Plt Count 180 10^3/uL (130-400) 08/30/24 03:23
Sodium 128 mmol/L (135-145) L 09/02/24 07:32
Potassium 4.2 mmol/L (3.5-5.1) 09/02/24 07:32
Chloride 97 mmol/L (98-107) L 09/02/24 07:32
Carbon Dioxide 28 mmol/L (22-30) 09/02/24 07:32
BUN 10 mg/dl (9-20) 09/02/24 07:32
Creatinine 0.7 mg/dL (0.7-1.3) 09/02/24 07:32
eGFR > 60.00 09/02/24 07:32
Glucose 89 mg/dl (70-99) 09/02/24 07:32
Calcium 8.9 mg/dl (8.4-10.2) 09/02/24 07:32
Phosphorus 3.4 mg/dl (2.5-4.5) 08/30/24 03:23
Phosphorus Cancelled 08/30/24 03:23
Albumin 4.7 g/dl (3.5-5.0) 08/28/24 20:22
Physical Exam
-
Vital Signs:
Vital Signs
Temp Pulse Resp BP Pulse Ox
97.9 F 75 18 145/86 98
09/02/24 11:56 09/02/24 11:56 09/02/24 11:56 09/02/24 11:56 09/02/24 11:56
Cardiovascular:: Regular rate and rhythm
Respiratory:: Bilateral: CTA
Lung Excursion:: Normal
Abdomen:: Nontender and Soft
Bowel Sounds:: Normal
Extremity Edema:: None: Bilateral:
Valentine Catheter: No
[2024-09-02] MEDS: SODIUM CHLORIDE 1 GRAM PO (14:59)
[2024-09-02 15:00] VITALS: BP 141/81
--- NOTE | 2024-09-02 15:20 | W.DS.TRANS ---
DC Summary - [employer]
-
Discharge Instructions:
Discharge Diagnosis/Procedures Impression:
Acute toxic metabolic encephalopathy secondary
to severe hyponatremia and alcohol withdrawal/
delirium tremens.
Acute on chronic hyponatremia
Alcohol withdrawal/delirium tremens.
Hypomagnesemia.
Mild hyperkalemia.
Acute urinary retention
Other conditions:
Essential hypertension
GERD
Alcohol use disorder.
Depression
Diet Restrict fluids to 48 oz
Blood Work BMP in 7 days
Instructions:
Stand-Alone Forms:
Changes to Home Medications: Yes
Discharge Medications:
DC Medications w/original date entered in [facility]
Probiotic 1 cap PO DAILY Gastrointestinal Issue 08/28/24
cyanocobalamin (vitamin B-12) 1,000 mcg capsule 1,000 mcg PO DAILY Supplement 08/28/24
folic acid 800 mcg tablet 0.8 mg PO DAILY Supplement 08/28/24
magnesium oxide 400 mg PO Q12H Electrolyte Repletion 08/28/24
omeprazole 40 mg capsule,delayed release 40 mg PO DAILY Gastrointestinal Issue 08/28/24
atorvastatin 10 mg tablet 10 mg PO DAILY #30 tabs 09/02/24
carvedilol 12.5 mg tablet 12.5 mg PO BID #60 tabs 09/02/24
furosemide 20 mg tablet 20 mg PO DAILY #30 tabs 09/02/24
potassium chloride 10 mEq tablet,extended release(part/cryst) 10 meq PO BID #60 tabs 09/02/24
sodium chloride 1,000 mg soluble tablet 1,000 mg PO DAILY@1400 Electrolyte Repletion #60 tabs 09/02/24
sodium chloride 1,000 mg soluble tablet 2,000 mg (2 x 1,000 mg) PO BID Electrolyte Repletion #30 tabs 09/02/24
thiamine HCl (vitamin B1) 250 mg tablet 250 mg PO DAILY Supplement #30 tabs 09/02/24
Home Medication Changes
Citalopram discontinued
Lasix initiated along with sodium tabs for hyponatremia
Pending Results: No
--- NOTE | 2024-09-02 15:38 | CM ---
PT PT OT improved .
Spoke with and dgt all agreed that pt will be dc for dgt who lives local and in a day will will drive him home.
said that she has already contacted PCP to set up VN near their home.
KRISH Barragan placed in summary for his meds .
PLAN Home no needs
--- NOTE | 2024-09-02 16:00 | PTCARENOTE ---
Discharge paperwork reviewed w/ patient and his .
== END 2024-09-02 16:11 | disposition home or self-care (01) | DRG 643 ==
LOC: 4 EAST ACU 23:55
PROVIDERS: Nurse Practitioner Family; Nurse Practitioner Primary Care; Radiology Neuroradiology; Specialist; Student in an Organized Health Care Education/Training Program; ADMITTING PHYSICIAN Hospitalist; ATTENDING PHYSICIAN Internal Medicine; CONSULT PHYSICIAN Internal Medicine; EMERGENCY PHYSICIAN Student in an Organized Health Care Education/Training Program; OTHER PHYSICIAN Internal Medicine
PROC: 0DH67UZ Insertion of Feeding Device into Stomach, Via Natural or Artificial Opening (ICD-10-PCS; 2024-08-29)
DX: E22.2 Syndrome of inappropriate secretion of antidiuretic hormone (principal); G92.8 Other toxic encephalopathy; F10.231 Alcohol dependence with withdrawal delirium; I10 Essential (primary) hypertension; E78.00 Pure hypercholesterolemia, unspecified; E83.42 Hypomagnesemia; F32.A Depression, unspecified; K21.9 Gastro-esophageal reflux disease without esophagitis; D64.9 Anemia, unspecified; R33.9 Retention of urine, unspecified; G25.81 Restless legs syndrome; F41.9 Anxiety disorder, unspecified; W01.0XXA Fall on same level from slipping, tripping and stumbling without subsequent striking against object, initial encounter; Y93.89 Activity, other specified; Y92.230 Patient room in hospital as the place of occurrence of the external cause; E87.5 Hyperkalemia; Z78.1 Physical restraint status; Z82.49 Family history of ischemic heart disease and other diseases of the circulatory system
CPT/HCPCS: 71045; 73501; 74018; 80048; 80053; 80306; 81003; 82010; 82077; 82533; 82550; 82607; 82728; 82962; 82977; 83540; 83550; 83735; 83935; 84100; 84295; 84300; 84443; 85025; 85027; 85610; 85730; 92526; 92610; 93005; 93971; 97116; 97163; 97167; 97530; 97535; 99291